=== PATIENT | female | born 1980 | race Caucasian/White ===

== ENCOUNTER → 2023-10-27 10:18 | Outpatient (REF) | payer OTHER, SELFPAY | LOC: RAD 10:18 | PROVIDERS: ATTENDING PHYSICIAN Family Medicine | DX: R00.2 Palpitations (principal); R42 Dizziness and giddiness; R79.89 Other specified abnormal findings of blood chemistry | CPT/HCPCS: 76536 ==

== ENCOUNTER → 2023-10-28 07:26 | Outpatient (REF) | payer OTHER, SELFPAY | LOC: EMG 07:26 | PROVIDERS: ATTENDING PHYSICIAN Orthopaedic Surgery; FAMILY PHYSICIAN Family Medicine | DX: M25.532 Pain in left wrist (principal); M67.432 Ganglion, left wrist; R20.0 Anesthesia of skin | CPT/HCPCS: 95885; 95910 ==

== ENCOUNTER → 2024-05-25 08:29 | Outpatient (REF) | payer OTHER, SELFPAY | LOC: HWWDC 08:29 | PROVIDERS: ATTENDING PHYSICIAN Obstetrics & Gynecology; FAMILY PHYSICIAN Family Medicine | DX: Z12.31 Encounter for screening mammogram for malignant neoplasm of breast (principal) | CPT/HCPCS: 77063; 77067 ==

== ENCOUNTER → 2024-07-28 12:49 | Outpatient (REF) | payer OTHER, SELFPAY | LOC: WDC 12:49 | PROVIDERS: ATTENDING PHYSICIAN Obstetrics & Gynecology; FAMILY PHYSICIAN Family Medicine | DX: R92.2 Inconclusive mammogram (principal) | CPT/HCPCS: 76641 ==

== ENCOUNTER → 2024-08-04 07:47 | Outpatient (REF) | payer OTHER, SELFPAY ==
--- NOTE | 2024-08-04 09:39 | OID.BR.INTR ---
GABRIELLED Breast Navigator - Initial
- -
Date of Contact: 08/04/24
Met with patient. Patient given written information on navigator services available at [facility]. Will follow up as needed per protocol.
== END ==
LOC: WDC 07:47
PROVIDERS: ATTENDING PHYSICIAN Obstetrics & Gynecology; FAMILY PHYSICIAN Family Medicine
DX: N63.23 Unspecified lump in the left breast, lower outer quadrant (principal); N63.31 Unspecified lump in axillary tail of the right breast
CPT/HCPCS: 88305; 19083; 19084; A4648

== ENCOUNTER → 2024-11-13 08:26 | Outpatient (REF) | payer OTHER, SELFPAY | LOC: HWRAD 08:26 | PROVIDERS: ATTENDING PHYSICIAN Family Medicine | DX: K90.0 Celiac disease (principal); E04.1 Nontoxic single thyroid nodule | CPT/HCPCS: 76536 ==

== ENCOUNTER 2025-04-05 08:16 | Emergency (ER) | payer OTHER, SELFPAY ==
[2025-04-05] VITALS (8 sets, daily range): BP systolic 100–120; BP diastolic 70–81; PULSE 66–76
--- NOTE | 2025-04-05 09:08 | ED.GENMED ---
History of Present Illness
General
Chief Complaint: Breathing Problem
Source: patient and spouse
Time Seen by Provider: 04/05/25 08:21
History of Present Illness
History of Present Illness:
44-year-old female with past medical history of asthma, celiac disease and anxiety presenting to the emergency department for evaluation of ongoing symptoms including palpitations, shortness of breath/exertional dyspnea, lightheadedness and
generalized fatigue that have been ongoing for 1 month plus without exact etiology found despite patient undergoing workup with her bank secrecy act officer, vice president global digital marketing and seeing an tax specialist. Patient reports that she was diagnosed with secondary
polycythemia vera and that she is scheduled to go back to her bank secrecy act officer to discuss these results, recently wore a Holter monitor for her vice president global digital marketing but does not have these results back yet and is scheduled to undergo a stress test and
echocardiogram within the next 2 weeks as part of her further workup. Patient states that she also saw an tax specialist who told her that everything looked okay and that they did not feel her symptoms are related to an endocrine problem.
Patient also notes that she has a known enlarged axillary lymph node and mass on the left chest wall that is followed by Amadou Wise and is reportedly benign. She does note the history of anxiety but states overall she does not feel anxious and that
she does not think that this is the overarching problem.
Past History
Past History
ED Past Medical History: Asthma (Exercise induced.) and Other (Bronchitis, Celiac)
ED Past Surgical History: Gynecological, Orthopedic, Tonsilectomy and Urological
Social History
Tobacco: Non-smoker
Alcohol: Occasional
Drug: None
Personal:
Living: with family
Employment: Employed
Family History
Family History: CAD and Other (Her mother has metastatic breast cancer)
Review of Systems
Review of Systems
All Other Systems: ROS reviewed and negative except as documented in HPI and ROS
Phy Exam
Physical Exam
Physical Exam:
GENERAL: Alert , in no apparent distress
EYE: clear conjunctiva b/l
HEAD: NCAT
ENT: mmm.
CARDIAC: Regular rate and rhythm, HR between 68-82bpm.
LUNGS: Clear breath sounds bilaterally, no acute respiratory distress, no wheezes/rales/rhonchi
ABDOMEN: Soft, without focal tenderness, no r/g, no cvat
NEUROLOGICAL: Alert and oriented
SKIN: Warm and dry, skin intact.
MUSCULOSKELETAL: No edema, well perfused.
PSYCH: Normal and appropriate interaction.
Scores
Heart Failure Risk
Heart Failure Risk Score: Not Applicable
Heart Score for Chest Pain Patients
STEMI patient?: Not applicable
Withdrawal Assessment of Alcohol
Withdrawal Assessment Completed?: Not applicable
Course
Orders/Labs/Results
Orders:
Orders
04/05/25 08:57
Electrocardiogram (*1) Urgent
Reason for Study: Shortness of Breath
CT Chest PE Study Urgent
Comment:
Reason For Exam: tachycardia, SOB/BROWNING
EKG- Treatment ONCE
Orthostatic VS- Treatment ONCE
04/05/25 09:05
Echo 2D MMode Color/Doppler Urgent
Reason for Study: SOB/BROWNING
04/05/25 09:12
Complete Blood Count/With Diff Urgent
Comprehensive Metabolic Panel Urgent
Ferritin Urgent
Iron Urgent
Magnesium Urgent
NT-proBNP Urgent
Troponin I Urgent
Abnormal Lab Results
04/05/25
09:12
MPV 10.9 H fL
(7.4-10.4)
Absolute Lymphs (auto) 0.6 L 10^3/uL
(1.2-3.4)
Absolute Monos (auto) 0.9 H 10^3/uL
(0.1-0.6)
Neutrophils % 78.4 H %
(42.2-75.2)
Lymphocytes % 8.5 L %
(20.5-51.1)
Monocytes % 11.5 H %
(1.7-9.3)
BUN 20 H mg/dl
(7-17)
Calcium 10.4 H mg/dl
(8.4-10.2)
04/05/25 09:12
04/05/25 09:12
Vital Signs
Initial and Last Documented VS:
Initial Vital Signs
Temp Pulse Resp BP Pulse Ox
98.5 F 89 16 120/81 98
04/05/25 08:18 04/05/25 08:18 04/05/25 08:18 04/05/25 08:18 04/05/25 08:18
Last Documented Vital Signs
Temp Pulse Resp BP Pulse Ox
98.5 F 71 13 101/80 99
04/05/25 08:18 04/05/25 11:00 04/05/25 11:00 04/05/25 11:00 04/05/25 11:00
MDM/Problems Addressed
Differential Diagnosis Includes:
Cardiac Arrhythmia
Valvular Dysfunction
PE
ACS
Electrolyte Imbalance
Anxiety
CHF
MS
Orthostasis
Thyroid Dysfunction - pt did recently have normal thyroid tests as outpatient
MDM/Problems Addressed:
44-year-old female presenting to the ER for evaluation of ongoing shortness of breath, palpitations with intermittent elevated heart rates, generalized fatigue and generally feeling unwell. Has started to undergo workup as an outpatient with no
specific etiologies found. Scheduled for further testing within the next few weeks but today felt worse which is why she presented to the ER. She arrives to the ER hemodynamically stable, normal heart rate during my exam and in no acute distress.
Will repeat some labs, given the reports of shortness of breath/exertional dyspnea and occasional pain on the left side of her chest will obtain CTA of the chest to rule out PE although my suspicion for diagnosis is less likely. Will also discuss
with cardiology to see if we are able to get an echocardiogram in the ER. Expressed to patient that she will still need to follow-up as an outpatient for her stress test. Disposition pending.
*Radiology
Radiology exam reviewed: radiology read reviewed
*Pulse Oximetry
SaO2: 100
Oxygen Mode of Delivery: Room air
Patient hypoxic: no
*EKG
Heart Rate: 65
Rate: normal
Rhythm: sinus
[place]: normal axis
Ischemia: no ischemia
*Bad Credit Collector Interpretation
Rate: normal
Heart Rate: 75
Rhythm: sinus
*Critical Care Note
Total Time (30-74mins, 75-104mins- exclusive of procedures): Not Applicable
Data Reviewed
Review of Other/Old Records Reveals: Labs and Records
Patient Management
Escalation/DeEscalation of care consider admission/obs:
Patient's workup is unremarkable for any acute pathologies. CTA of the chest is negative for pulmonary embolism, incidental findings had been worked up as an outpatient previously and patient was already aware of these findings. Echocardiogram
showed no acute abnormalities. Patient was provided with a printout of both CT report and echocardiogram to follow-up with her outpatient providers. She is aware of return precautions to the ER but otherwise stable for discharge home.
ED Attending Note
-
Portions of this chart may have been created with voice recognition software.� Occasional wrong word or��sound alike� substitutions may have occurred due to the inherent limitations of voice recognition software.
Discharge Plan
Departure
Patient Disposition: Home (Routine Discharge)
Date of Disposition: 04/05/25
Time of Disposition: 12:45
Patient with high blood pressure during this ER visit?: No
Discharge Problem:
Palpitations, Shortness of breath
Instructions: Shortness of Breath (Dyspnea) (DC)
Prescriptions:
No Action
lorazepam 1 MG tablet
1 mg PO Q8HPRN PRN (Reason: anxiety) Qty: 15 0RF
meclizine 25 mg tablet
25 mg PO TID PRN (Reason: dizziness) Qty: 10 0RF
Referrals:
UNKNOWN - PT NOT,INTERVIEWE [Family Provider]
Interventions
Interventions:
*Risk Screen - Suicide Last Done: 04/05/25 08:18
*General Assessment Last Done: 04/05/25 08:29
*Neglect/Abuse Screening Last Done: 04/05/25 08:18
*ED- Fall Risk Assessment Last Done: 04/05/25 08:29
*ED COVID-19 Vaccine History Last Done: 04/05/25 08:29
*Nursing Disposition Last Done: 04/05/25 13:00
ED- Cardiac Assessment Last Done: 04/05/25 08:29
ED- Pulmonary Assessment Last Done: 04/05/25 08:29
Discharge Date and Time
Discharge Date/Time: 04/05/25 13:00
Print Language: [id number]
[2025-04-05 09:27] LABS: Hematocrit 43.4 % (37.0-47.0); Hemoglobin 15.5 g/dL (12.0-16.0); Mean Corp Hgb Conc. 35.7 g/dL (33.0-37.0); Mean Corpuscular Volume 86.3 fL (81.0-99.0); Nucleated Red Blood Cells % 0 %; Platelet Count 211 10^3/uL (130-400); Red Cell Dist. Width 12.0 % (11.5-14.5)
[2025-04-05 09:40] LABS: ALT (SGPT) 14 U/L (0-35); AST (SGOT) 18 U/L (14-36); Albumin 4.5 g/dl (3.5-5.0); Alkaline Phosphatase 52 U/L (38-126); Blood Urea Nitrogen 20 mg/dl (7-17); Calcium 10.4 mg/dl (8.4-10.2); Carbon Dioxide 23 mmol/L (22-30); Chloride 106 mmol/L (98-107); Glucose 91 mg/dl (70-99); Iron 157 ug/dl (37-170); Potassium 4.0 mmol/L (3.5-5.1); Sodium 137 mmol/L (135-145); Total Protein 7.3 g/dl (6.3-8.2); eGFR > 60.00
[2025-04-05 09:51] LABS: Troponin I < 0.012 ng/ml
[2025-04-05 09:56] LABS: Magnesium 1.8 mg/dl (1.6-2.3)
[2025-04-05 10:52] LABS: Ferritin 91.5 ng/ml (6.24-137)
== END 2025-04-05 13:00 | disposition home or self-care (01) ==
LOC: EMR 08:16
PROVIDERS: Physician Assistant Medical; EMERGENCY PHYSICIAN Emergency Medicine
DX: R00.2 Palpitations (principal); R06.02 Shortness of breath; D45 Polycythemia vera; J45.990 Exercise induced bronchospasm; F41.9 Anxiety disorder, unspecified; K90.0 Celiac disease; K86.81 Exocrine pancreatic insufficiency; Z82.49 Family history of ischemic heart disease and other diseases of the circulatory system
CPT/HCPCS: 99284; 71275; 80053; 82728; 83540; 83735; 83880; 84484; 85025; 93005; 93306; Q9967